=== PATIENT | female | born 1955 | race Caucasian/White ===

== ENCOUNTER 2017-02-20 19:48 | Emergency (ER) | payer BC ==
[~2017-02-20] VITALS: Ht 160 cm; Wt 54.0 kg
--- NOTE | 2017-02-20 21:37 | NUR ---
Patient discharged to home in stable conditon. Written and verbal after care instructions given. Patient verbalizes understanding of instructions.
== END 2017-02-20 21:38 | disposition home or self-care (01) ==
LOC: ER 19:52
DX: J20.9 Acute bronchitis, unspecified (principal)
CPT/HCPCS: A4663